=== PATIENT | male | born 1975 | race Caucasian/White ===

== ENCOUNTER 2019-03-17 12:02 | Emergency (ER) | payer MEDICAID ==
[~2019-03-17] VITALS: Ht 162.6 cm; Wt 93.8 kg
[~2019-03-17 12:02] MED LIST: CIPR500T21 PO; HYDR1CAP PO; LOPE2CAP PO; METRONIDAZOLE PO; ONDA4TAB14 PO; ONDA4TAB8 PO; [UNRECOGNIZED DRUG - OTHER]; [UNRECOGNIZED DRUG - REMARK]
[2019-03-17 12:06] VITALS: Ht 162.6 cm; Wt 93.8 kg
[2019-03-17] MEDS ORDERED: ONDANSETRON (ODT) 4 MG TAB ODT STA (12:20)
[2019-03-17] MEDS ORDERED: LOPERAMIDE 2 MG CAP PO ONE (12:30)
[2019-03-17 12:43] VITALS: BP 127/76; PULSE 72; RESP 20
--- NOTE | 2019-03-17 12:48 | ERD ---
ER Documentation Chief Complaint Chief Complaint ABDOMINAL PAIN WITH N/V/D FOR 3 DAYS HPI Patient is a 43-year-old male with diabetes who presents with vomiting and diarrhea. He said the symptoms for the past 3 to 4 days. He denies any abdominal pain. He has no fevers. He tried Pepto-Bismol. He denies sick cont acts. Upon review of old medical records this is the patient's sixth visit to the ER since 2011. He has a primary doctor but does not remember the name. ROS All systems reviewed and are negative except as per history of present illness. Medications Home Meds Active Scripts Loperamide Hcl* (Imodium*) 2 Mg Capsule, 2 MG PO .AFTER EA LOOSE BM PRN for DIARRHEA, #10 TAB Prov:SHONNA PLAZA MD 03/17/19 Ondansetron (Ondansetron Odt) 4 Mg Tab.rapdis, 4 MG PO Q6H PRN for NAUSEA AND/OR VOMITING, #10 TAB Prov:SHONNA PLAZA MD 03/17/19 Discontinued Reported Medications [Metronidazole] No Conflict Check, 500 MG PO TID 02/25/12 Hydrocodone Bit/Acetaminophen (Hydrocodone-Apap 5-500 Cap) 1 Cap Capsule, 1 CAP PO Q 8HRS PRN 02/25/12 Ondansetron Hcl* (Zofran*) 4 Mg Tablet, 4 MG PO PRN 02/25/12 Ciprofloxacin Hcl* (Ciprofloxacin* ER) 500 Mg/Bottle Tbmp.24hr, 500 MG PO BID 02/25/12 [Meds At Home Pt Forgot] No Conflict Check 02/25/12 [Uknown] No Conflict Check 09/28/11 Allergies Allergies: Coded Allergies: No Known Allergy (Unverified , 03/17/19) PMhx/Soc History of Surgery: No Anesthesia Reaction: No Hx Neurological Disorder: No Hx Respiratory Disorders: No Hx Cardiac Disorders: No Hx Psychiatric Problems: No Hx Miscellaneous Medical Probl: No Hx Alcohol Use: No Hx Substance Use: No Hx Tobacco Use: No Smoking Status: Never smoker FmHx Family History: No diabetes Physical Exam Vitals Vital Signs Date Temp Pulse Resp B/P (MAP) Pulse Ox O2 O2 Flow FiO2 Time Delivery Rate 03/17/19 98.2 72 20 127/76 100 Room Air 12:43 (93) 03/17/19 98.7 81 18 146/86 98 12:06 (106) Physical Exam Const: No acute distress Head: Atraumatic Eyes: Normal Conjunctiva ENT: Normal External Ears, Nose and Mouth. Neck: Full range of motion. No meningismus. Resp: Clear to auscultation bilaterally Cardio: Regular rate and rhythm, no murmurs Abd: Soft, non tender, non distended. Normal bowel sounds Skin: No petechiae or rashes Back: No midline or flank tenderness Ext: No cyanosis, or edema Neur: Awake and alert Psych: Normal Mood and Affect Results 24 hrs Laboratory Tests Test 03/17/19 12:28 Bedside Glucose 139 mg/dL Current Medications Medications Dose Sig/Paul Start Time Status Last (Trade) Ordered Route PRN Stop Time Admin Dose Reason Admin Loperamide 2 mg ONCE ONCE 03/17/19 DC 03/17/19 HCl PO 12:30 03/17/19 12:32 (Imodium Cap) 12:31 Ondansetron 4 mg ONCE STAT 03/17/19 DC 03/17/19 HCl (Zofran ODT 12:20 03/17/19 12:32 Odt) 12:21 Procedures/MDM Patient is a 43-year-old male presents with vomiting and diarrhea. Abdominal exam is completely benign and he has no pain with pushing deeply in all 4 quadrants. The patient was given Zofran and Imodium for symptom medic relief. Accu-Chek was less than 200 and I doubt hyperglycemia or diabetic ketoacidosis. The patient will be discharged home to follow-up closely with his primary doctor within 1 week. I believe he likely has a viral illness. I doubt appendicitis, cholecystitis, pancreatitis, or bowel obstruction. Departure Diagnosis: Primary Impression: Vomiting and diarrhea Condition: Fair Patient Instructions: Self-Care for Vomiting and Diarrhea Referrals: Your doctor Additional Instructions: Llame al doctor nomholly avery (Referral Sources) MAANA y heidi ron JOSI PARA DENTRO DE RON SEMANA. Dgale a la secretaria que nosotros le instruimos hacer esta josi.Avise o llame si singh condicin se empeora antes de la josi. SHONNA PLAZA MD Mar 17, 2019 12:48
== END 2019-03-17 12:55 | disposition home or self-care (01) ==
LOC: E/R 12:02
DX: R11.2 Nausea with vomiting, unspecified (principal); R19.7 Diarrhea, unspecified
CPT/HCPCS: 82962; Z7502; Z7610; 99283